=== PATIENT | female | born 1955 | race Caucasian/White ===

== ENCOUNTER 2016-11-28 13:26 | Day surgery (SDC) | payer BC, OTHER ==
--- NOTE | ~2016-11-28 | EGD ---
EGD REPORT [facility] [address] [id number] NAME: ONEIDA BADILLO : 55 STATUS : [facility] [place] PAT#: [id number] AGE: 61 ADM/REG DATE : 11/28/16 MR#: [id number] REPORT SERV DATE: 11/28/16 DICTATED BY: ROCCO GAMING DATE: 11/28/16 REPORT STATUS : Draft [facility]ANSCRIBED BY: [facility] DATE: 11/28/16 [facility] Center Patient Name: Oneida Badillo Date of : 1955 Attending MD: JEANETTE GAMING MD Procedure Date No Time: 11/28/2016 Procedure: Upper GI endoscopy Indications: Epigastric abdominal pain, Gastro-esophageal reflux disease Referring MD: HAYLEY NINA Medicines: (medications documented represent total dosages for multiple procedures) Complications: No immediate complications. Estimated blood loss: None. Procedure: Pre-Anesthesia Assessment: - ASA Grade Assessment: II - A patient with mild systemic disease. - Prior to the procedure, a History and Physical was performed, and patient medications and allergies were reviewed. The patient's tolerance of previous anesthesia was also reviewed. The risks and benefits of the procedure and the sedation options and risks were discussed with the patient. All questions were answered, and informed consent was obtained. Prior Anticoagulants: The patient has taken no previous anticoagulant or antiplatelet agents. After reviewing the risks and benefits, the patient was deemed in satisfactory condition to undergo the procedure. After obtaining informed consent, the endoscope was passed under direct vision. Throughout the procedure, the patient's blood pressure, pulse, and oxygen saturations were monitored continuously. The GIF [id number] was introduced through the mouth, and advanced to the second part of duodenum. The upper GI endoscopy was accomplished without difficulty. The patient tolerated the procedure well. Findings: The examined duodenum was normal. The gastric antrum was normal. Biopsies were taken with a cold forceps for histology. Multiple 3 to 10 mm semi-sessile polyps with no stigmata of recent bleeding were found in the stomach. This was biopsied with a cold forceps for histology. The cardia and gastric fundus were normal on retroflexion. The examined esophagus was normal. EGD REPORT [address] [address] NAME: ONEIDA BADILLO : 55 STATUS : [facility] [place] PAT#: [id number] AGE: 61 ADM/REG DATE : 11/28/16 MR#: [id number] REPORT SERV DATE: 11/28/16 DICTATED BY: ROCCO GAMING DATE: 11/28/16 REPORT STATUS : Draft TRANSCRIBED BY: [facility] DATE: 11/28/16 Impression: - Normal examined duodenum. - Normal antrum. Biopsied. - Multiple gastric polyps. Biopsied. - Normal esophagus. Recommendation: - Patient has a contact number available for emergencies. The signs and symptoms of potential delayed complications were discussed with the patient. Return to normal activities tomorrow. Written discharge instructions were provided to the patient. - Regular diet. - Discharge patient to home. - Continue present medications. - Await pathology results. - Repeat the upper endoscopy in 1 year for surveillance. Procedure Code(s): --- Professional --- 68648, Esophagogastroduodenoscopy, flexible, transoral; with biopsy, single or multiple Diagnosis Code(s): --- Professional --- K31.7, Polyp of stomach and duodenum R10.13, Epigastric pain K21.9, Gastro-esophageal reflux disease without esophagitis CPT copyright 2013 [employer]. All rights reserved. The codes documented in this report are preliminary and upon construction and maintenance inspector review may be revised to meet current compliance requirements. JEANETTE GAMING MD 11/28/2016 4:22 PM This report has been signed electronically. Number of Addenda: 0 Note Initiated On: 11/28/2016 4:01 PM [address] [address]
[~2016-11-28 13:26] MED LIST: GLUCOPHAGE1000 MG PO; LIPOTRIAD1 CAP PO; MICARDIS HC1 PO; MICARDIS HCT PO; PCET PO; PRILO PO; TORATAB PO; ULTRAM50 PO; VICTOZA18 MG/3 ML SC; VITAMIN D31000 UNIT PO
== END 2016-11-28 23:59 | disposition home or self-care (01) ==
LOC: DMU 13:26
PROVIDERS: Internal Medicine Gastroenterology
PROC: 0DB58ZX Excision of Esophagus, Via Natural or Artificial Opening Endoscopic, Diagnostic (ICD-10-PCS; 2016-11-28)
PROC: 0DB68ZX Excision of Stomach, Via Natural or Artificial Opening Endoscopic, Diagnostic (ICD-10-PCS; principal; 2016-11-28 15:00)
DX: K31.7 Polyp of stomach and duodenum (principal); R10.13 Epigastric pain; K21.9 Gastro-esophageal reflux disease without esophagitis; E11.9 Type 2 diabetes mellitus without complications; Z79.899 Other long term (current) drug therapy; Z79.84 Long term (current) use of oral hypoglycemic drugs; Z88.8 Allergy status to other drugs, medicaments and biological substances
CPT/HCPCS: 82962; 88305